=== PATIENT | male | born 1985 | race Hispanic/Latino ===

== ENCOUNTER 2017-09-02 21:22 | Emergency (ER) | payer BC ==
[2017-09-02 21:48] VITALS: BP 119/78; PULSE 86; RESP 16; TEMP 99.4; O2SAT 98
--- NOTE | 2017-09-02 22:03 | ED PDOC ---
HPI: Eye Injury/Pain Time Seen by Provider: 09/02/17 21:25 Chief Complaint (Nursing): Eye Problem Chief Complaint (Provider): Conjunctivitis History Per: Patient Additional Complaint(s): Pt is a 32 yo male, no PMH, presents to the ED with complaints of left eye pain , swelling and rash. Pt was recently seen and given Tobramycin, but reports no relief. Past Medical History Reviewed: Historical Data, Nursing Documentation, Vital Signs Vital Signs: Last Vital Signs Temp 99.4 F 09/02/17 21:45 Pulse 86 09/02/17 21:45 Resp 16 09/02/17 21:45 BP 119/78 09/02/17 21:45 Pulse Ox 98 09/02/17 21:45 - Medical History PMH: No Chronic Diseases - Surgical History Surgical History: No Surg Hx - Family History Family History: States: No Known Family Hx - Living Arrangements Living Arrangements: With Family - Social History Current smoker - smoking cessation education provided: No Alcohol: Social Drugs: Denies - Home Medications Home Medications: Ambulatory Orders Medication Instructions Recorded Acyclovir [Zovirax] 800 mg PO 5XD 7 Days tab 09/02/17 Methylprednisolone [Medrol Dose 4 mg PO DAILY #21 mg 09/02/17 Pack (21 tabs)] - Allergies Allergies/Adverse Reactions: Allergies Allergy/AdvReac Type Severity Reaction Status Date / Time [place] [employer] Allergy ITCHING Verified 09/02/17 21:48 Review of Systems ROS Statement: Except As Marked, All Systems Reviewed And Found Negative ENT: Positive for: Ear Pain Skin: Positive for: Rash Physical Exam - Reviewed Nursing Documentation Reviewed: Yes Vital Signs Reviewed: Yes - Physical Exam Appears: Positive for: Well, Non-toxic, No Acute Distress Head Exam: Positive for: ATRAUMATIC, NORMAL INSPECTION, NORMOCEPHALIC Skin: Positive for: Normal Color, Warm, DRY Eye Exam: Positive for: EOMI, PERRL, Periorbital swelling (4 scattered papules noted under left lower lid), Periorbital tenderness ENT: Positive for: Normal ENT Inspection Neck: Positive for: Normal, Painless ROM Cardiovascular/Chest: Positive for: Regular Rate, Rhythm Respiratory: Positive for: CNT, Normal Breath Sounds Gastrointestinal/Abdominal: Positive for: Normal Exam, Bowel Sounds, Soft Back: Positive for: Normal Inspection Extremity: Positive for: Normal ROM Neurologic/Psych: Positive for: Alert, Oriented - ECG O2 Sat by Pulse Oximetry: 98 Medical Decision Making Medical Decision Making: Pt educated on herpes zoster and demonstrated full understanding Pt started on Acyclovir and Prednisone Case discussed with opthomologist, Dr. mckenzie, who agreed with treatment and disposition at this time. pt will follow up in office with Dr. Mckenzie tomorrow Disposition - Clinical Impression Clinical Impression: Herpes simplex, ocular - Patient ED Disposition Is Patient to be Admitted: No - Disposition Referrals: Roberto Mckenzie MD [Staff Provider] - Disposition: Routine/Home Disposition Time: 23:00 Condition: STABLE Prescriptions: Acyclovir [Zovirax] 800 mg PO 5XD 7 Days tab Methylprednisolone [Medrol Dose Pack (21 tabs)] 4 mg PO DAILY #21 mg Instructions: Shingles (ED) Forms: [facility] (Irish)
== END 2017-09-02 22:49 | disposition home or self-care (01) ==
LOC: H.ER 21:22
DX: B00.50 Herpesviral ocular disease, unspecified (principal)